=== PATIENT | male | born 1945 | race Caucasian/White ===

== ENCOUNTER 2020-02-03 03:11 | Observation (INO) ==
[2020-02-03] MEDS ORDERED: Ondansetron 4 MG/2 ML VIAL IVP ONE (03:47)
[2020-02-03] MEDS ORDERED: 0.9 % Sodium Chloride 1,000 ML IV ONE (03:47)
[2020-02-03] MEDS ORDERED: Isovue-370 500 ML BOTTLE IVP ONE (04:06)
[2020-02-03] MEDS ORDERED: diazePAM 10 MG/2 ML SYRINGE IVP ONE (04:08)
[2020-02-03 04:13] LABS: Basophils # 0.1 K/mcL (0.0-0.2); Basophils % 1.1 %; Eosinophils # 0.1 K/mcL (0.0-0.6); Eosinophils % 2.4 %; Hematocrit 46.3 % (37.5-50.1); Hemoglobin 15.7 g/dL (12.9-16.9); Immature Granulocytes % 0.4 % (0-4); Lymphocytes # 1.2 K/mcL (0.6-4.6); Lymphocytes % 21.8 %; Mean Corpuscular HGB Conc 33.9 g/dL (31.6-35.5); Mean Corpuscular Hemoglobin 30.3 pg (28.0-33.3); Mean Corpuscular Volume 89.2 fL (83.0-100.0); Mean Platelet Volume 10.1 fL (9.4-12.4); Monocytes # 0.5 K/mcL (0.0-1.3); Monocytes % 9.7 %; Neutrophils # 3.5 K/mcL (1.6-8.9); Platelet Count 203 K/mcL (140-400); Red Blood Count 5.19 M/mcL (4.19-5.50); Red Cell Distribution Width 12.7 % (11.5-14.5); Segmented Neutrophils % 64.6 %; White Blood Count 5.5 K/mcL (4.3-11.1)
[2020-02-03 04:17] LABS: Albumin 3.9 g/dL (3.5-5.7); Albumin/Globulin Ratio 1.4 (1.1-2.2); Bilirubin,Total 0.5 mg/dL (0.3-1.0); Calcium 9.4 mg/dL (8.6-10.3); Globulin 2.7 g/dL (2.4-3.5); Potassium 3.9 mEq/L (3.5-5.1); Total Protein 6.6 g/dL (6.4-8.9)
[2020-02-03 05:03] LABS: Bilirubin,Urine Negative (Negative); Blood,Urine Negative (Negative); Clarity,Urine Clear (Clear); Color,Urine Light-Yellow (Yellow); Glucose,Urine (UA) Normal (Normal); Ketones,Urine Negative (Negative); Leukocyte Esterase,Urine Negative (Negative); Nitrite,Urine Negative (Negative); Protein,Urine 30 mg/dL (Neg-Trace); RBC,Urine 0-3 per hpf (0-3); Specific Gravity,Urine 1.014 (1.010-1.025); Urobilinogen,Urine Normal (Normal); WBC,Urine 0-3 per hpf (0-3)
[2020-02-03 07:01] LABS: INR 1.1; Prothrombin Time 12.9 Seconds (9.4-12.1)
[2020-02-03 07:04] LABS: Activated Partial Thrombo Time 47.6 Seconds (26.0-36.0)
[2020-02-03] MEDS ORDERED: Naloxone 0.4 MG/ML INJ IVP PRN (07:46)
[2020-02-03] MEDS ORDERED: [UNRECOGNIZED DRUG - OTHER] PO SCH (09:00)
[2020-02-03] MEDS ORDERED: HYDROCHLOROTHIAZIDE PO SCH (09:00)
[2020-02-03] MEDS ORDERED: Fluticasone Propionate Nasal 50 MCG/SPRAY BOTTLE NS SCH (09:00)
[2020-02-03] MEDS ORDERED: METOPROLOL PO SCH (09:00)
[2020-02-03] MEDS ORDERED: Dextrose Gel 15 GM/37.5 ML TUBE PO PRN ×2 (09:53)
[2020-02-03] MEDS ORDERED: *HR* Dextrose 50 % in Water (Vial) 50 ML VIAL IVP PRN (09:53)
[2020-02-03] MEDS ORDERED: D5% in Water 1,000 ML IVC PRN (09:53)
[2020-02-03] MEDS ORDERED: Ondansetron 4 MG/2 ML VIAL IVP PRN (10:05)
[2020-02-03] MEDS: Metoprolol 100 MG TABLET PO SCH (10:34)
[2020-02-03] MEDS: Finasteride 5 MG TABLET PO SCH (10:34)
[2020-02-03] MEDS: hydroCHLOROthiazide 25 MG TABLET PO SCH (10:34)
[2020-02-03] MEDS: Ranolazine 500 MG TAB.ER.12H PO SCH ×2 (10:35→21:00)
[2020-02-03] MEDS: Apixaban 5 MG TABLET PO SCH ×2 (10:35→21:00)
[2020-02-03] MEDS: Sucralfate 1 GM TABLET PO SCH ×2 (10:35→21:00)
[2020-02-03] MEDS: Aspirin 81 MG TAB.CHEW PO SCH (11:45)
[2020-02-03] MEDS: Insulin LISPRO 300 UNITS/3 ML VIAL SQ SCH ×2 (11:55→17:10)
[2020-02-03] MEDS: methylPREDNISolone 125 MG/2 ML VIAL IVP SCH (17:10)
[2020-02-03] MEDS ORDERED: Gabapentin 300 MG CAPSULE PO SCH (21:00)
[2020-02-04] MEDS ORDERED: Acetaminophen 325 MG TABLET PO PRN (00:45)
[2020-02-04] MEDS: methylPREDNISolone 125 MG/2 ML VIAL IVP SCH (05:39)
[2020-02-04 07:48] VITALS: BP 155/69
[2020-02-04 08:52] LABS: Basophils % 0.2 %; Eosinophils % 0.1 %; Hematocrit 49.6 % (37.5-50.1); Hemoglobin 16.9 g/dL (12.9-16.9); Immature Granulocytes % 0.8 % (0-4); Lymphocytes % 12.3 %; Mean Corpuscular HGB Conc 34.1 g/dL (31.6-35.5); Mean Corpuscular Hemoglobin 31.4 pg (28.0-33.3); Mean Corpuscular Volume 92.2 fL (83.0-100.0); Mean Platelet Volume 9.9 fL (9.4-12.4); Monocytes # 0.3 K/mcL (0.0-1.3); Monocytes % 3.2 %; Neutrophils # 6.9 K/mcL (1.6-8.9); Platelet Count 206 K/mcL (140-400); Red Blood Count 5.38 M/mcL (4.19-5.50); Red Cell Distribution Width 13.1 % (11.5-14.5); Segmented Neutrophils % 83.4 %; White Blood Count 8.3 K/mcL (4.3-11.1)
[2020-02-04 09:00] LABS: Calcium 9.6 mg/dL (8.6-10.3); Potassium 4.1 mEq/L (3.5-5.1)
[2020-02-04] MEDS: Apixaban 5 MG TABLET PO SCH (09:06)
[2020-02-04] MEDS: Metoprolol 100 MG TABLET PO SCH (09:06)
[2020-02-04] MEDS: Finasteride 5 MG TABLET PO SCH (09:06)
[2020-02-04] MEDS: Ranolazine 500 MG TAB.ER.12H PO SCH (09:06)
[2020-02-04] MEDS: Aspirin 81 MG TAB.CHEW PO SCH (09:06)
[2020-02-04] MEDS: Sucralfate 1 GM TABLET PO SCH (09:06)
[2020-02-04] MEDS: hydroCHLOROthiazide 25 MG TABLET PO SCH (09:07)
[2020-02-04] MEDS: Insulin LISPRO 300 UNITS/3 ML VIAL SQ SCH (09:09)
[2020-02-04 09:40] LABS: Magnesium 1.9 mg/dL (1.6-2.6); Phosphorous 3.1 mg/dL (2.7-4.5)
== END 2020-02-04 10:40 | disposition home or self-care (01) ==
LOC: EMEROOARM 03:11 → 3BNU 03:11 → SUATTDRO 10:19 → 3BNU 10:56
PROVIDERS: ADMIT Internal Medicine; ATTEND Internal Medicine

== ENCOUNTER 2020-06-30 06:37 | Inpatient (IN) ==
[2020-06-30] MEDS ORDERED: Aspirin 81 MG TAB.CHEW ONE (07:03)
[2020-06-30] MEDS ORDERED: Aspirin 81 MG TAB.CHEW PO ONE (07:06)
[2020-06-30] MEDS ORDERED: *HR* Heparin 5,000 UNIT/ML VIAL ONE (07:07)
[2020-06-30] MEDS ORDERED: *HR* Heparin 5,000 UNIT/ML VIAL SQ ONE (07:18)
[2020-06-30 07:20] LABS: VBG HCO3 20 mEq/L (21-27); VBG PCO2 30 mmHg (41-51); VBG PH 7.44 pH Units (7.32-7.42); VBG PO2 76 mmHg (25-50)
[2020-06-30 07:22] LABS: Basophils % 0.2 %; Hematocrit 44.4 % (37.5-50.1); Hemoglobin 15.4 g/dL (12.9-16.9); INR 1.4; Immature Granulocytes % 0.8 % (0-4); Lymphocytes # 0.6 K/mcL (0.6-4.6); Lymphocytes % 6.6 %; Mean Corpuscular HGB Conc 34.7 g/dL (31.6-35.5); Mean Corpuscular Hemoglobin 30.7 pg (28.0-33.3); Mean Corpuscular Volume 88.4 fL (83.0-100.0); Mean Platelet Volume 10.2 fL (9.4-12.4); Monocytes # 0.7 K/mcL (0.0-1.3); Monocytes % 7.8 %; Neutrophils # 7.3 K/mcL (1.6-8.9); Platelet Count 173 K/mcL (140-400); Prothrombin Time 16.4 Seconds (9.4-12.1); Red Blood Count 5.02 M/mcL (4.19-5.50); Red Cell Distribution Width 12.8 % (11.5-14.5); Segmented Neutrophils % 84.6 %; White Blood Count 8.6 K/mcL (4.3-11.1)
[2020-06-30 07:24] LABS: Activated Partial Thrombo Time 36.4 Seconds (26.0-36.0)
[2020-06-30] MEDS ORDERED: *HR* Heparin 5,000 UNIT/ML VIAL IVP ONE (07:28)
[2020-06-30 07:31] LABS: Bilirubin,Urine Negative (Negative); Blood,Urine Trace (Negative); Clarity,Urine Clear (Clear); Color,Urine Yellow (Yellow); Glucose,Urine (UA) Normal (Normal); Ketones,Urine Negative (Negative); Leukocyte Esterase,Urine Negative (Negative); Mucus,Urine Few per lpf (None-Few); Nitrite,Urine Negative (Negative); Protein,Urine 100 mg/dL (Neg-Trace); RBC,Urine 0-3 per hpf (0-3); Specific Gravity,Urine 1.027 (1.010-1.025); Urobilinogen,Urine Normal (Normal); WBC,Urine 0-3 per hpf (0-3)
[2020-06-30 07:50] LABS: Acetaminophen < 10 mcg/mL (10-20); Alanine Aminotransferase 19 Units/L (7-52); Albumin 3.9 g/dL (3.5-5.7); Albumin/Globulin Ratio 1.3 (1.1-2.2); Alkaline Phosphatase 48 Units/L (34-104); Aspartate Amino Transferase 15 Units/L (13-39); BUN/Creatinine Ratio 19 (6-26); Bilirubin,Direct 0.2 mg/dL (0.0-0.2); Bilirubin,Indirect 0.6 mg/dL (0.0-1.0); Bilirubin,Total 0.8 mg/dL (0.3-1.0); Blood Urea Nitrogen 31 mg/dL (8-23); Calcium 8.8 mg/dL (8.6-10.3); Carbon Dioxide 19 mEq/L (23-29); Chloride 102 mEq/L (98-107); Globulin 2.9 g/dL (2.4-3.5); Glucose 146 mg/dL (70-105); Magnesium 1.7 mg/dL (1.6-2.6); Osmolality,Calculated 283 (280-300); Potassium 3.6 mEq/L (3.5-5.1); Sodium 132 mEq/L (136-145); Total Protein 6.8 g/dL (6.4-8.9); Troponin I 0.06 ng/mL (< 0.04); eGFR For African Americans 49 (> 60); eGFR For Non-African Americans 41 (> 60)
[2020-06-30 09:19] LABS: Troponin I 0.07 ng/mL (< 0.04)
[2020-06-30] MEDS ORDERED: Ondansetron 4 MG/2 ML VIAL IVP PRN (09:30)
[2020-06-30] MEDS ORDERED: Naloxone 0.4 MG/ML INJ IVP PRN (09:30)
[2020-06-30] MEDS ORDERED: Perflutren Lipid Microsphere 1.3 ML in 0.9 % Sodium Chloride 8.7 ML IVP PRN (09:31)
[2020-06-30] MEDS ORDERED: *HR* Heparin 5,000 UNIT/ML VIAL IVP PRN ×2 (10:36)
[2020-06-30] MEDS ORDERED: Heparin 25,000UNIT/250ML 1/2NS 25,000 UNIT/250 ML IV.SOLN IVC SCH (10:45)
[2020-06-30] MEDS: Azithromycin 500 MG in 0.9 % Sodium Chloride 250 ML IVPB SCH (11:59)
[2020-06-30] MEDS: Heparin 25,000UNIT/250ML 1/2NS 25,000 UNIT/250 ML IV.SOLN IVC SCH (11:59)
[2020-06-30 15:23] LABS: Heparin anti-factor XA UFH 0.88 IU/mL (0.30-0.70)
[2020-06-30 15:24] LABS: INR 1.4; Prothrombin Time 15.6 Seconds (9.4-12.1)
[2020-07-01 01:44] LABS: Basophils % 0.4 %; Hematocrit 43.8 % (37.5-50.1); Immature Granulocytes % 0.9 % (0-4); Lymphocytes # 0.5 K/mcL (0.6-4.6); Lymphocytes % 6.5 %; Mean Corpuscular HGB Conc 34.2 g/dL (31.6-35.5); Mean Corpuscular Volume 87.6 fL (83.0-100.0); Mean Platelet Volume 9.7 fL (9.4-12.4); Monocytes # 0.5 K/mcL (0.0-1.3); Monocytes % 6.1 %; Platelet Count 159 K/mcL (140-400); Red Cell Distribution Width 13.1 % (11.5-14.5); Segmented Neutrophils % 86.1 %; White Blood Count 8.1 K/mcL (4.3-11.1)
[2020-07-01 02:03] LABS: Calcium 8.4 mg/dL (8.6-10.3); Potassium 3.6 mEq/L (3.5-5.1)
[2020-07-01] MEDS: Heparin 25,000UNIT/250ML 1/2NS 25,000 UNIT/250 ML IV.SOLN IVC SCH ×2 (02:28→16:07)
[2020-07-01 06:59] LABS: Estimated Average Glucose 177 mg/dl
[2020-07-01] MEDS ORDERED: Nitroglycerin 0.4 MG TAB.SUBL SL PRN (08:22)
[2020-07-01] MEDS ORDERED: Albuterol 2.5 MG/3 ML NEBULIZER IH PRN (08:22)
[2020-07-01] MEDS ORDERED: Dexamethasone 4 MG/ML VIAL IVP SCH (09:00)
[2020-07-01] MEDS: Sucralfate 1 GM TABLET PO SCH ×2 (09:07→20:30)
[2020-07-01] MEDS: Aspirin 81 MG TAB.CHEW PO SCH (09:07)
[2020-07-01] MEDS: Ranolazine 500 MG TAB.ER.12H PO SCH ×2 (09:07→20:30)
[2020-07-01] MEDS: cefTRIAXone 1,000 MG in 0.9 % Sodium Chloride Mini Bag 100 ML IVP SCH (09:08)
[2020-07-01 09:22] LABS: Acinetobacter baumannii by PCR Not Detected (Not Detect); Candida albicans by PCR Not Detected (Not Detect); Candida glabrata by PCR Not Detected (Not Detect); Candida krusei by PCR Not Detected (Not Detect); Candida parapsilosis by PCR Not Detected (Not Detect); Candida tropicalis by PCR Not Detected (Not Detect); Enterobacter cloacae Cmplx PCR Not Detected (Not Detect); Enterobacteriaceae by PCR Not Detected (Not Detect); Enterococcus by PCR Not Detected (Not Detect); Escherichia coli by PCR Not Detected (Not Detect); Klebsiella oxytoca by PCR Not Detected (Not Detect); Klebsiella pneumoniae by PCR Not Detected (Not Detect); Proteus by PCR Not Detected (Not Detect); Pseudomonas aeruginosa by PCR Not Detected (Not Detect); Serratia marcescens by PCR Not Detected (Not Detect); Staphylococcus aureus by PCR Not Detected (Not Detect); Staphylococcus by PCR DETECTED (Not Detect); Streptococcus agalactiae(B)PCR Not Detected (Not Detect); Streptococcus by PCR Not Detected (Not Detect); Streptococcus pneumoniae PCR Not Detected (Not Detect); Streptococcus pyogenes (A) PCR Not Detected (Not Detect); mecA Methicillin-Resist Gene Not Detected (Not Detect)
[2020-07-01] MEDS: (Dutasteride [Avodart] 0.5 MG) PO SCH (09:36)
[2020-07-01] MEDS: Azithromycin 500 MG in 0.9 % Sodium Chloride 250 ML IVPB SCH (10:06)
[2020-07-01] MEDS ORDERED: Dexamethasone Sodium Phos/PF 10 MG/ML VIAL IVP ONE (12:09)
[2020-07-01 13:48] LABS: Albumin 3.6 g/dL (3.5-5.7); Albumin/Globulin Ratio 1.2 (1.1-2.2); Bilirubin,Direct 0.3 mg/dL (0.0-0.2); Bilirubin,Indirect 0.6 mg/dL (0.0-1.0); Bilirubin,Total 0.9 mg/dL (0.3-1.0); Total Protein 6.6 g/dL (6.4-8.9)
[2020-07-01] MEDS ORDERED: Remdesivir 200 MG in 0.9 % Sodium Chloride 100 ML IVPB ONE (17:00)
[2020-07-01] MEDS: Gabapentin 300 MG CAPSULE PO SCH (20:30)
[2020-07-02 01:56] LABS: Basophils % 0.3 %; Hematocrit 44.5 % (37.5-50.1); Hemoglobin 14.9 g/dL (12.9-16.9); Immature Granulocytes % 1.3 % (0-4); Lymphocytes # 0.4 K/mcL (0.6-4.6); Lymphocytes % 4.8 %; Mean Corpuscular HGB Conc 33.5 g/dL (31.6-35.5); Mean Corpuscular Volume 89.7 fL (83.0-100.0); Mean Platelet Volume 9.7 fL (9.4-12.4); Monocytes # 0.4 K/mcL (0.0-1.3); Monocytes % 4.5 %; Neutrophils # 7.1 K/mcL (1.6-8.9); Platelet Count 152 K/mcL (140-400); Red Blood Count 4.96 M/mcL (4.19-5.50); Red Cell Distribution Width 13.2 % (11.5-14.5); Segmented Neutrophils % 89.1 %; White Blood Count 7.9 K/mcL (4.3-11.1)
[2020-07-02 02:01] LABS: INR 1.2; Prothrombin Time 13.8 Seconds (9.4-12.1)
[2020-07-02 02:12] LABS: Albumin 3.5 g/dL (3.5-5.7); Albumin/Globulin Ratio 1.1 (1.1-2.2); Bilirubin,Total 0.6 mg/dL (0.3-1.0); Calcium 8.6 mg/dL (8.6-10.3); Globulin 3.2 g/dL (2.4-3.5); Magnesium 2.4 mg/dL (1.6-2.6); Phosphorous 3.8 mg/dL (2.7-4.5); Potassium 4.3 mEq/L (3.5-5.1); Total Protein 6.7 g/dL (6.4-8.9)
[2020-07-02 02:15] LABS: D-Dimer 340 ng/mLFEU (0-500); Fibrinogen 716 mg/dL (169-393)
[2020-07-02] MEDS: Heparin 25,000UNIT/250ML 1/2NS 25,000 UNIT/250 ML IV.SOLN IVC SCH (06:35)
[2020-07-02] MEDS ORDERED: Acetaminophen IV 500 MG/50 ML INFUS..BTL IVPB ONE (09:05)
[2020-07-02] MEDS: Ranolazine 500 MG TAB.ER.12H PO SCH ×2 (09:27→22:21)
[2020-07-02] MEDS: Dexamethasone Sodium Phos/PF 10 MG/ML VIAL IVP SCH (10:57)
[2020-07-02] MEDS: Aspirin 81 MG TAB.CHEW PO SCH (10:57)
[2020-07-02] MEDS: Sucralfate 1 GM TABLET PO SCH ×2 (10:57→22:17)
[2020-07-02] MEDS: (Dutasteride [Avodart] 0.5 MG) PO SCH (10:58)
[2020-07-02] MEDS: cefTRIAXone 1,000 MG in 0.9 % Sodium Chloride Mini Bag 100 ML IVP SCH (10:59)
[2020-07-02] MEDS: Azithromycin 500 MG in 0.9 % Sodium Chloride 250 ML IVPB SCH (11:02)
[2020-07-02] MEDS ORDERED: *HR* Midazolam HCl 5 MG/5 ML VIAL IVP ONE (11:21)
[2020-07-02] MEDS ORDERED: *HR* Etomidate 20 MG/10 ML AMPUL IVP ONE (11:21)
[2020-07-02] MEDS ORDERED: *HR* Rocuronium Bromide 100 MG/10 ML VIAL IVP ONE (11:21)
[2020-07-02] MEDS ORDERED: Morphine Sulfate 2 MG/ML SYRINGE IVP ONE (13:15)
[2020-07-02] MEDS ORDERED: ALPRAZolam 0.25 MG TABLET PO PRN (15:31)
[2020-07-02] MEDS ORDERED: Remdesivir 100 MG in 0.9 % Sodium Chloride 100 ML IVPB SCH (17:00)
[2020-07-02] MEDS ORDERED: *HR* LORazepam 2 MG/ML VIAL IVP PRN (20:31)
[2020-07-02] MEDS ORDERED: Dexmedetomidine HCl 400 MCG/100 ML MLS IVC ONE (21:59)
[2020-07-02] MEDS: Dexmedetomidine HCl 400 MCG/100 ML MLS IVC SCH (22:05)
[2020-07-02] MEDS: Gabapentin 300 MG CAPSULE PO SCH (22:20)
[2020-07-02] MEDS: Apixaban 5 MG TABLET PO SCH (22:20)
[2020-07-02] MEDS: FentaNYL (PF) 1,000 MCG/100 ML IV.SOLN IVC SCH (23:00)
[2020-07-02 23:25] LABS: ABG Base Excess -5 mEq/L (-2 to 3); ABG HCO3 25 mEq/L (21-27); ABG Oxygen Saturation 75 % (95-98); ABG PCO2 65 mmHg (35-45); ABG PO2 51 mmHg (85-104); ABG TCO2 27 mEq/L (20-26); Blood Gas VT 550 cc
[2020-07-03] MEDS: Cisatracurium 200 MG in 0.9 % Sodium Chloride 180 ML IVC SCH ×3 (00:22→15:19)
[2020-07-03] MEDS ORDERED: Furosemide 40 MG/4 ML VIAL IVP ONE (01:10)
[2020-07-03] MEDS ORDERED: Vancomycin 2,000 MG/520 ML IV.SOLN IVPB ONE (03:00)
[2020-07-03] MEDS: FentaNYL (PF) 1,000 MCG/100 ML IV.SOLN IVC SCH ×3 (03:49→18:00)
[2020-07-03 04:32] LABS: ABG Base Excess -4 mEq/L (-2 to 3); ABG HCO3 29 mEq/L (21-27); ABG Oxygen Saturation 83 % (95-98); ABG PCO2 87 mmHg (35-45); ABG PH 7.13 pH Units (7.32-7.45); ABG PO2 65 mmHg (85-104); ABG TCO2 31 mEq/L (20-26); Blood Gas Modality ASSIST CONTROL; Blood Gas VT 480 cc
[2020-07-03] MEDS: Dexamethasone Sodium Phos/PF 10 MG/ML VIAL IVP SCH (08:30)
[2020-07-03] MEDS: Azithromycin 500 MG in 0.9 % Sodium Chloride 250 ML IVPB SCH (08:32)
[2020-07-03] MEDS: Piperacillin/Tazobactam 3.375 GM in 0.9 % Sodium Chloride Mini Bag 100 ML IVPB SCH ×3 (08:34→23:25)
[2020-07-03] MEDS: Ranolazine 500 MG TAB.ER.12H PO SCH (08:34)
[2020-07-03] MEDS: Apixaban 5 MG TABLET PO SCH (08:34)
[2020-07-03] MEDS: Aspirin 81 MG TAB.CHEW PO SCH (08:34)
[2020-07-03] MEDS: Dexmedetomidine HCl 400 MCG/100 ML MLS IVC SCH ×5 (08:35→23:30)
[2020-07-03] MEDS: Sucralfate 1 GM TABLET PO SCH ×2 (08:36→20:55)
[2020-07-03] MEDS ORDERED: 0.9 % Sodium Chloride 1,000 ML ONE (09:00)
[2020-07-03 10:49] LABS: ABG Base Excess -7 mEq/L (-2 to 3); ABG HCO3 24 mEq/L (21-27); ABG Oxygen Saturation 87 % (95-98); ABG PCO2 74 mmHg (35-45); ABG PH 7.12 pH Units (7.32-7.45); ABG PO2 72 mmHg (85-104); ABG TCO2 26 mEq/L (20-26); Blood Gas Modality ASSIST CONTROL; Blood Gas VT 500 cc
[2020-07-03] MEDS ORDERED: *HR* Dextrose 50 % in Water (Vial) 50 ML VIAL IVP PRN (11:40)
[2020-07-03] MEDS ORDERED: Artificial Tears SOLN 15 ML BOTTLE BOTH EYES PRN (11:40)
[2020-07-03] MEDS ORDERED: Dextrose Gel 15 GM/37.5 ML TUBE PO PRN ×2 (11:40)
[2020-07-03] MEDS ORDERED: D5% in Water 1,000 ML IVC PRN (11:40)
[2020-07-03] MEDS ORDERED: Heparin 25,000UNIT/250ML 1/2NS 25,000 UNIT/250 ML IV.SOLN IVC SCH (11:45)
[2020-07-03] MEDS ORDERED: *HR* Heparin 5,000 UNIT/ML VIAL IVP ONE (11:45)
[2020-07-03] MEDS ORDERED: *HR* Heparin 5,000 UNIT/ML VIAL IVP PRN ×2 (11:45)
[2020-07-03] MEDS: Insulin LISPRO 300 UNITS/3 ML VIAL SQ SCH ×4 (12:14→23:53)
[2020-07-03] MEDS: Artificial Tears SOLN 15 ML BOTTLE BOTH EYES SCH ×4 (12:18→23:53)
[2020-07-03] MEDS: Pantoprazole 40 MG VIAL IVP SCH (12:18)
[2020-07-03] MEDS: Heparin 25,000UNIT/250ML 1/2NS 25,000 UNIT/250 ML IV.SOLN IVC SCH ×2 (12:37→23:27)
[2020-07-03 13:14] LABS: Basophils % 0.1 %; Hematocrit 44.4 % (37.5-50.1); Immature Granulocytes % 1.3 % (0-4); Lymphocytes # 0.3 K/mcL (0.6-4.6); Lymphocytes % 3.3 %; Mean Corpuscular HGB Conc 31.5 g/dL (31.6-35.5); Mean Corpuscular Hemoglobin 29.7 pg (28.0-33.3); Mean Corpuscular Volume 94.3 fL (83.0-100.0); Mean Platelet Volume 10.1 fL (9.4-12.4); Monocytes # 0.7 K/mcL (0.0-1.3); Monocytes % 7.2 %; Neutrophils # 8.5 K/mcL (1.6-8.9); Platelet Count 178 K/mcL (140-400); Red Blood Count 4.71 M/mcL (4.19-5.50); Red Cell Distribution Width 13.4 % (11.5-14.5); Segmented Neutrophils % 88.1 %; White Blood Count 9.7 K/mcL (4.3-11.1)
[2020-07-03 13:27] LABS: Heparin anti-factor XA UFH 0.07 IU/mL (0.30-0.70); INR 1.1
[2020-07-03 13:29] LABS: Activated Partial Thrombo Time 34.3 Seconds (26.0-36.0)
[2020-07-03 13:35] LABS: Albumin 3.1 g/dL (3.5-5.7); Bilirubin,Total 0.7 mg/dL (0.3-1.0); Calcium 7.8 mg/dL (8.6-10.3); Globulin 3.1 g/dL (2.4-3.5); Magnesium 2.8 mg/dL (1.6-2.6); Phosphorous 8.6 mg/dL (2.7-4.5); Total Protein 6.2 g/dL (6.4-8.9)
[2020-07-03 13:41] LABS: D-Dimer 658 ng/mLFEU (0-500)
[2020-07-03 13:48] LABS: Fibrinogen 716 mg/dL (169-393)
[2020-07-03] MEDS: Norepinephrine 4 MG/254 ML IV.SOLN IVC SCH (15:19)
[2020-07-03 18:58] LABS: Heparin anti-factor XA UFH 1.47 IU/mL (0.30-0.70)
[2020-07-03 19:31] LABS: Activated Partial Thrombo Time > 360.0 Seconds (26.0-36.0)
[2020-07-03] MEDS: Budesonide/Formoterol 160/4.5 1 PUFF INH IH SCH (20:01)
[2020-07-03] MEDS: (Dutasteride [Avodart] 0.5 MG) PO SCH (20:21)
[2020-07-03] MEDS: Insulin DETEMIR 100 UNIT/ML X5UNITS SQ SCH (20:55)
[2020-07-03] MEDS: Chlorhexidine Rinse 15 ML MOUTHWASH MM SCH (20:55)
[2020-07-04] MEDS: Cisatracurium 200 MG in 0.9 % Sodium Chloride 180 ML IVC SCH ×2 (00:54→08:13)
[2020-07-04] MEDS: Heparin 25,000UNIT/250ML 1/2NS 25,000 UNIT/250 ML IV.SOLN IVC SCH (01:31)
[2020-07-04] MEDS: Norepinephrine 4 MG/254 ML IV.SOLN IVC SCH ×2 (01:31→08:14)
[2020-07-04] MEDS: FentaNYL (PF) 1,000 MCG/100 ML IV.SOLN IVC SCH ×2 (01:49→08:16)
[2020-07-04] MEDS ORDERED: Vancomycin 1,750 MG/517.5 ML IV.SOLN IVPB SCH (03:00)
[2020-07-04 04:00] LABS: ABG Base Excess -9 mEq/L (-2 to 3); ABG HCO3 23 mEq/L (21-27); ABG Oxygen Saturation 95 % (95-98); ABG PCO2 84 mmHg (35-45); ABG PH 7.05 pH Units (7.32-7.45); ABG PO2 114 mmHg (85-104); ABG TCO2 26 mEq/L (20-26); Blood Gas Modality ASSIST CONTROL; Blood Gas VT 500 cc
[2020-07-04] MEDS: Insulin LISPRO 300 UNITS/3 ML VIAL SQ SCH ×3 (04:14→12:29)
[2020-07-04] MEDS: Artificial Tears SOLN 15 ML BOTTLE BOTH EYES SCH ×3 (04:14→12:29)
[2020-07-04 04:38] LABS: Basophils # 0.1 K/mcL (0.0-0.2); Basophils % 0.5 %; Hematocrit 45.8 % (37.5-50.1); Hemoglobin 14.5 g/dL (12.9-16.9); Immature Granulocytes % 4.3 % (0-4); Lymphocytes # 0.6 K/mcL (0.6-4.6); Lymphocytes % 3.2 %; Mean Corpuscular HGB Conc 31.7 g/dL (31.6-35.5); Mean Corpuscular Hemoglobin 29.8 pg (28.0-33.3); Mean Platelet Volume 9.9 fL (9.4-12.4); Monocytes # 1.6 K/mcL (0.0-1.3); Monocytes % 8.7 %; Nucleated Red Blood Cells 0.2 /100 WBC (0); Platelet Count 307 K/mcL (140-400); Red Blood Count 4.87 M/mcL (4.19-5.50); Red Cell Distribution Width 13.6 % (11.5-14.5); Segmented Neutrophils % 83.3 %
[2020-07-04 04:45] LABS: INR 1.1; Prothrombin Time 12.9 Seconds (9.4-12.1)
[2020-07-04 04:55] LABS: VBG Ionized Calcium 0.92 mmol/L (1.15-1.35)
[2020-07-04 05:05] LABS: Fibrinogen 693 mg/dL (169-393)
[2020-07-04 05:06] LABS: D-Dimer 513 ng/mLFEU (0-500)
[2020-07-04 05:11] LABS: Activated Partial Thrombo Time 145.1 Seconds (26.0-36.0)
[2020-07-04 05:15] LABS: Albumin 3.1 g/dL (3.5-5.7); Albumin/Globulin Ratio 0.9 (1.1-2.2); Bilirubin,Total 0.7 mg/dL (0.3-1.0); Calcium 7.6 mg/dL (8.6-10.3); Globulin 3.4 g/dL (2.4-3.5); Phosphorous 11.1 mg/dL (2.7-4.5); Potassium 5.6 mEq/L (3.5-5.1); Total Protein 6.5 g/dL (6.4-8.9)
[2020-07-04 06:14] LABS: ABG Base Excess -8 mEq/L (-2 to 3); ABG HCO3 25 mEq/L (21-27); ABG Oxygen Saturation 95 % (95-98); ABG PCO2 85 mmHg (35-45); ABG PH 7.07 pH Units (7.32-7.45); ABG PO2 111 mmHg (85-104); ABG TCO2 27 mEq/L (20-26); Blood Gas Modality ASSIST CONTROL; Blood Gas VT 600 cc
[2020-07-04] MEDS: Piperacillin/Tazobactam 3.375 GM in 0.9 % Sodium Chloride Mini Bag 100 ML IVPB SCH (07:13)
[2020-07-04] MEDS: Pantoprazole 40 MG VIAL IVP SCH (07:14)
[2020-07-04] MEDS: Aspirin 81 MG TAB.CHEW PO SCH (07:14)
[2020-07-04] MEDS: Sucralfate 1 GM TABLET PO SCH (07:14)
[2020-07-04] MEDS: Chlorhexidine Rinse 15 ML MOUTHWASH MM SCH (07:14)
[2020-07-04] MEDS: Dexamethasone Sodium Phos/PF 10 MG/ML VIAL IVP SCH (07:14)
[2020-07-04] MEDS: Insulin DETEMIR 100 UNIT/ML X5UNITS SQ SCH (07:57)
[2020-07-04] MEDS: Budesonide/Formoterol 160/4.5 1 PUFF INH IH SCH (08:25)
[2020-07-04 08:40] LABS: ABG Base Excess -8 mEq/L (-2 to 3); ABG HCO3 23 mEq/L (21-27); ABG Oxygen Saturation 98 % (95-98); ABG PCO2 70 mmHg (35-45); ABG PH 7.12 pH Units (7.32-7.45); ABG PO2 137 mmHg (85-104); ABG TCO2 25 mEq/L (20-26); Blood Gas VT 550 cc
[2020-07-04] MEDS: Azithromycin 500 MG in 0.9 % Sodium Chloride 250 ML IVPB SCH (09:25)
[2020-07-04] MEDS: Dexmedetomidine HCl 400 MCG/100 ML MLS IVC SCH (10:35)
[2020-07-04] MEDS ORDERED: *HR* LORazepam 2 MG/ML VIAL IVP PRN (13:26)
[2020-07-04 14:25] VITALS: BP 131/52
[2020-07-04] MEDS ORDERED: Piperacillin/Tazobactam 3.375 GM in 0.9 % Sodium Chloride Mini Bag 100 ML IVPB SCH (20:00)
== END 2020-07-04 14:45 | disposition expired | DRG 871 ==
LOC: EMEROOARM 06:37 → 2NENU 06:37
PROVIDERS: ADMIT Internal Medicine; ATTEND Internal Medicine